=== PATIENT | male | born 1980 | race Caucasian/White ===

== ENCOUNTER 2016-07-17 15:19 | Emergency (ER) | payer OTHER | END 2016-07-17 18:38 | disposition home or self-care (01) | LOC: ER1 15:19 | DX: M54.5 Low back pain (principal); F41.0 Panic disorder [episodic paroxysmal anxiety]; Z79.899 Other long term (current) drug therapy; W10.9XXA Fall (on) (from) unspecified stairs and steps, initial encounter; Y92.009 Unspecified place in unspecified non-institutional (private) residence as the place of occurrence of the external cause | CPT/HCPCS: 72100; 96372; 99283; J1885 ==